=== PATIENT | male | born 1960 | race Caucasian/White ===

== ENCOUNTER 2017-09-11 15:12 | Emergency (ER) | payer MEDICAID ==
[~2017-09-11] VITALS: Ht 165.1 cm; Wt 54.4 kg
[~2017-09-11 15:12] MED LIST: CHLORHEXIDINE MT; HYDROCODONE-APA1 TA1 PO; PEN-VK500 MG PO; VENTOLIN H0.09 MG/Ac IH
[2017-09-11] MEDS ORDERED: ETODOLAC200 MG PO (15:23)
[2017-09-11] MEDS ORDERED: BACTRIM DS 8001 TA1 PO (15:23)
--- NOTE | 2017-09-11 15:24 | Emergency Room Report ---
History of Present Illness Time Seen by 1519 Presenting Problem in Triage Pt arrived:Walked Presenting Problem:PILONIDAL CYST TO SACRUM Onset of symptoms date/time:/ or onset unknown for:MEDICAL HX UNKNOWN Treatment Prior to Arrival: BIOCHEMISTRY TECHNICIAN Provided by: Sepsis Risk Assessment: Temp: 98.8 B/P: 134/86 MAP: Pulse: 114 Resp: 20 Recent fever? N Clinical Suspician of Infection? N Mental Status: 1 - Regular (Normal Baseline) Sepsis Risk:Low Sepsis Risk Have you (or family members/close friends) recently traveled outside the [place]? N If Yes, where/when: Have you had exposure to infectious disease within the past month? TB? Other? Specify: Source patient, RN notes reviewed, RN/MD Exam Limitations no limitations Comment This is a 57-year-old male patient presented emergency room with a soreness on his midline low back, previously diagnosed as a pilonidal cyst. He had some positive cultures, and he was prescribed some advised by his physician 2 weeks ago which patient failed to fill from the pharmacy. Patient advised that he had no money to afford his prescriptions. He is a heavy smoker, at the same time, smoking at least 2 packs of cigarettes a day. ALLERGIES Coded Allergies: codeine (Mild, 09/11/17) Home Medications Active Scripts Penicillin V Potassium (Pen-Vk 500MG) 500 MG PO Q6 #28 TAB Prov: 06/19/14 HYDROCODONE 5MG/APAP 325MG (Hydrocodon-Acetaminophen 5-325) 1 TAB PO Q4HP PRN SEVERE pain #12 TAB Prov: 06/19/14 Chlorhexidine Gluconate (Peridex Oral Rinse) 15 ML MT BID #1 BOT Prov: 06/19/14 Reported Medications Albuterol Sulfate (Ventolin Hfa) 0.09 MG IH PRN PRN COPD #18 History Medical History General Angina: No [place]: No Hypertension? No Hyperlipidemia? No CHF? No COPD? Yes Asthma? Yes CVA? No Seizures? No Diabetes? No MRSA? Yes TB? No Cancer? No Immunization Hx Ped.Immunizations UTD Yes DT/Tetanus 5-10 Years Ago Surgical Hx Previous Surgery?Y TOE Social History Smoking Hx Smoker: Current Every Day Smoker Tobacco: Yes Type N/A Packs/day 1 1/2 - 2 Packs Alcohol Alcohol: No Review of Systems All Other Systems Reviewed and Negative Skin rash (low back) Physical Exam Vital Signs Vital Signs Date Time Temp Pulse Resp B/P Pulse O2 O2 Flow FiO2 Ox Delivery Rate 09/11 1548 98.8 114 20 134/86 95 09/11 1534 20 09/11 1521 98.8 114 20 134/86 95 09/11 1514 98.3 118 18 99 General Appearance normal appearance, WD/WN, no apparent distress Respiratory Status Yes: trachea midline, chest symmetrical, non tender chest. No: respiratory distress. Lung Sounds bilateral: normal breath sounds, lungs clear. Cardiovascular normal exam, regular rate/rhythm, no peripheral edema, no gallop, no JVD, no murmur, no rub, normal peripheral pulses Gastrointestinal normal bowel sounds, normal exam, non tender, soft, no organomegaly Back normal inspection, no CVA tenderness, no vertebral tenderness Extremities non-tender, normal range of motion, normal inspection Neurologic alert, patient safety officer II-XII nml as tested, normal exam, oriented x 3 Mental status normal mood/affect Skin normal color, warm/dry, 2 x 2 erythematous area at the superior part of his intergluteal fissure, consistent with a pilonidal cyst, no fluctuance noticed Medical Decision Making LABS/Meds/Orders Pt receiving controlled substance in ED? No Comment 1510-patient makes repeated requests for narcotic pain medications, and I advised him that there is no medical indication for any. Will start patient on antibiotics again, and directed him to the general surgeon for outpatient workup evaluation/management. Results/Orders Current Medication Orders Sig/Gagan Start time Last Medication Dose Route Stop Time Status Admin Ketorolac 60 MG ONCE ONE 09/11 1530 DC 09/11 Tromethamine IM 09/11 1531 1534 Ondansetron HCl 4 MG ONCE ONE 09/11 1530 DC 09/11 IM 09/11 1531 1535 Trimethoprim/ 2 TABLET ONCE ONE 09/11 1530 DCr 09/11 Sulfamethoxazole PO 09/11 1531 1535 Ketorolac 0 .STK-MED ONE 09/11 1529 DC Tromethamine .ROUTE Ondansetron HCl 0 .STK-MED ONE 09/11 1528 DC .ROUTE Trimethoprim/ 0 .STK-MED ONE 09/11 1528 DC Sulfamethoxazole PO Departure Departure Time of Disposition 1520 Disposition DC Home or Self Care(routine) Clinical Impression Primary Impression: Pilonidal cyst Condition STABLE Referrals Sergio Morrow MD: Today after leaving ER please call today the surgeon's office and schedule a follow up appointment within the next 2 days Patient Instructions Pilonidal Cyst Additional Instructions Please atek the medications prescribed as instructed, follow-up with the general surgeon, Dr. Sergio Morrow, per instructions. Discharge Counseling Counseled pt/family regarding diagnosis, medications/RX, home care, follow up needs Comment Please atek the medications prescribed as instructed, follow-up with the general surgeon, Dr. Sergio Morrow, per instructions. Prescriptions Current Visit Scripts Etodolac 200 MG PO QID #28 CAP SULFAMETHOXAZOLE W/TRIMETHOPRI (Bactrim Ds Tab) 1 TABLET PO BID #20 TAB ED Critical Care Critical Care No at 8154
--- OUTSIDE RECORDS SUMMARY | 2017-09-11 15:30 | External Medical Summary Rpt | CCD ---
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 A41.01 Sepsis due 08-21-2016 to methicillin susceptible Staphylococ cus aureus B18.2 Chronic viral hepatitis C B19.10 Unspecified viral hepatitis B without hepatic coma D49.9 Neoplasm of unspecified behavior of unspecified site D69.6 Thrombocyto penia, unspecified D70.9 Neutropenia , unspecified D72.825 Bandemia E55.9 Vitamin D deficiency, unspecified E86.0 Dehydration F11.20 Opioid dependence, uncomplicat ed F11.23 Opioid dependence with withdrawal 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0 Chronic maxillary sinusitis K20.9 Esophagitis , unspecified M62.830 Muscle spasm of back N28.9 Disorder of kidney and ureter, unspecified R07.89 Other chest pain R07.9 Chest pain, unspecified R29.898 Other symptoms and signs involving the musculoskel etal system R50.81 Fever presenting with conditions classified elsewhere R73.09 Other abnormal glucose R76.8 Other specified abnormal immunologic al findings in serum R91.1 Solitary pulmonary nodule R94.31 Abnormal electrocard iogram (ECG) (EKG) Z00.00 Encounter for general adult medical examination without abnormal findings Z51.11 Encounter for antineoplas tic chemotherap y Z72.0 Tobacco use Z95.828 Presence of other vascular implants and grafts
--- OUTSIDE RECORDS SUMMARY | 2017-09-11 15:30 | External Medical Summary Rpt | CCD ---
Author Author , [employer] Organization [employer] Address Unknown Phone [email or web address] Purpose Continuity of Care Document - 08-21-2016 [...]
--- OUTSIDE RECORDS SUMMARY | 2017-09-11 15:31 | External Medical Summary Rpt | CCD ---
Author Author [employer] Address Unknown Phone Unavailable Purpose Continuity of Care Document - through 2016
--- OUTSIDE RECORDS SUMMARY | 2017-09-11 15:31 | External Medical Summary Rpt | CCD ---
Author Author , [employer] Organization [employer] Address Unknown Phone [email or web address] Name Relationship Address Phone KINZA, Next Of Kin Unknown Unavailable ANGELIA Immunization Name Date Rout CVX Reac Dose Comm Prov Is Faci e tion ent ider Refu lity Give sed n Infl 09-0 88 999 Hist 1005 No 1005 uenz 1-20 oric 00 00 a, 17 al UF Info rmat ion - Sour ce Unsp ecif ied PPV2 07-2 33 0.5 Hist JEREL No JEREL 3 2-20 mL oric TTHO TTHO 17 al MAS MAS Info rmat ion - Sour ce Unsp ecif ied Hep 07-1 Intr 52 1.00 Hist CLAR No H141 A, 9-20 amus mL oric K adul 16 cula lily RICHARD t r Info rmat ion - Sour ce Unsp ecif ied Tdap 07-1 Intr 115 0.50 Hist CLAR No H141 , 9-20 amus mL oric K Adso 16 cula al HILARY rbed r Info rmat ion - Sour ce Unsp ecif ied Td 03-0 Intr 9 999 Hist H196 No H196 (joe 6-19 amus oric lt), 97 cula al r Info adso rmat rbed ion - Sour ce Unsp ecif ied
--- OUTSIDE RECORDS SUMMARY | 2017-09-11 15:31 | External Medical Summary Rpt | CCD ---
Author Author , [employer] Organization [employer] Address Unknown Phone [email or web address] Support Name Relationship Address Phone KINZA, Next [...]
--- OUTSIDE RECORDS SUMMARY | 2017-09-11 15:31 | External Medical Summary Rpt ---
Author Author [employer] Shaw, [employer] Organization [employer] Address Unknown Phone Unavailable
[2017-09-11 15:48] VITALS: BP 134/86
== END 2017-09-11 15:48 | disposition home or self-care (01) ==
LOC: ER 15:12
DX: L05.91 Pilonidal cyst without abscess (principal)
CPT/HCPCS: J2405